=== PATIENT | female | born 1995 ===

== ENCOUNTER 2020-06-14 13:34 | Emergency (ER) | payer MEDICAID, SELFPAY | END 2020-06-14 15:15 | disposition left against medical advice (07) | PROVIDERS: Emergency Provider Emergency Medicine | DX: G44.309 Post-traumatic headache, unspecified, not intractable (principal) ==

== ENCOUNTER 2024-04-29 10:21 | Emergency (ER) | payer OTHER, SELFPAY ==
--- NOTE | ~2024-04-29 | US_ITS ---
EXAMINATION: US OBSTETRICAL ULTRASOUND CLINICAL INFORMATION: with lower abdominal pain. Positive HCG. COMPARISON: None available. LMP: 03/07/2024. Gestational age by maternal dates is 7 weeks 4 days. Estimated date of delivery by maternal dates is 12/12/2024. TECHNIQUE: Transabdominal imaging of pelvis is performed. FINDINGS: There is a single intrauterine gestational sac with visible yolk sac, embryo/fetus, and cardiac activity. There is no significant subchorionic hemorrhage or hematoma. Uterus is anteverted and measures 7.8 x 5.0 x 6.0 cm HR: 115 beats per minute. CRL (crown rump length): 0.77 cm (6 weeks 1 day +/- 4 days). CHAYA (estimated date of delivery): 12/22/2024 +/- 4 days. Clinical gestational age is 12/12/2024 MATERNAL ADNEXA: The right maternal ovary measures 2.0 x 1.4 1.8 cm. The left maternal ovary measures 1.7 x 1.3 x 1.8 cm. There is no significant maternal adnexal mass. No maternal pelvic ascites. US/US OB <= 14 weeks fetus IMPRESSION: 1. Single intrauterine gestation with ultrasound gestational age of 6 weeks 1 day +/- 4 days. 2. Estimated date of delivery is 12/22/2024 +/- 4 days. 3. No maternal adnexal mass or pelvic ascites. Electronically signed by: Billy Rankin MD 04/29/2024 02:54 PM [facility]
[2024-04-29 10:26] VITALS: BP 109/65; PULSE 76; RESP 20; TEMP 36.1; O2SAT 100; BMI 18.8
[2024-04-29 10:49] LABS: MANUAL DIFF FLAG NO
[2024-04-29 10:52] LABS: Basophils Percent Auto 0.3 % (0-2); Eosinophils Absolute Auto 0.1 X10*3/uL (0.0-0.4); Eosinophils Percent Auto 0.6 % (0-4); Hematocrit 37.6 % (37.0-47.0); Hemoglobin 12.6 g/dl (12.0-16.0); Imm Gran Abs Auto 0.02 X10*3/uL (0.00-0.03); Imm Gran Pct Auto 0.2 % (0.0-0.4); Lymphocytes Absolute Auto 2.1 X10*3/uL (1.2-4.9); Lymphocytes Percent Auto 24.1 % (20-40); Mean Corpuscular HGB Conc 33.5 g/dl (31.0-35.0); Mean Corpuscular Hemoglobin 25.4 pg (27.0-33.0); Mean Corpuscular Volume 75.7 fL (80.0-98.0); Mean Platelet Volume 11.8 fL (9.4-12.3); Monocytes Absolute Auto 0.5 X10*3/uL (0.1-1.2); Monocytes Percent Auto 5.7 % (2-11); Neutrophils Absolute Auto 6.1 x10*3/uL (2.0-8.3); Neutrophils Percent Auto 69.1 % (45-73); Platelet Count 239 X10*3/uL (160-400); Red Blood Count 4.97 X10*6/uL (4.20-5.50); Red Cell Distribution Width 15.4 % (11.0-16.0); White Blood Count 8.8 X10*3/uL (4.8-10.8)
[2024-04-29 10:59] LABS: UPreg QC Valid YES; Urine Pregnancy POSITIVE (NEGATIVE)
[2024-04-29 11:05] LABS: Anion Gap 13 (12-20); Blood Urea Nitrogen 10 mg/dL (9-16); Calcium 9.3 mg/dL (8.4-10.2); Carbon Dioxide 23 mmol/L (22-29); Chloride 104 mmol/L (96-108); Estimated Glomerular Filt Rate > 60; Glucose Random 100 mg/dL (60-115); Potassium 4.4 mmol/L (3.3-5.1); Sodium 136 mmol/L (135-145)
[2024-04-29 11:33] LABS: Influenza A PCR NEGATIVE (Negative); Influenza B PCR NEGATIVE (Negative); Resp Syncy Virus RNA Qual PCR NEGATIVE (Negative); SARS COV2 PCR INHOUSE NEGATIVE (Negative)
[2024-04-29 12:30] LABS: Appearance Urine Turbid; Color Urine Dark Yellow; Glucose Urine UA Negative (Negative); Leukocyte Esterase Urine Trace (Negative); Nitrite Urine Negative (Negative); PH 6.5 (5.0-9.0); Specific Gravity - Urine >= 1.030 (1.005-1.025); UMIC TRIGGER UACC YES; Urine Blood Negative (Negative); Urine Ketones >=160 mg/dL (Negative); Urine Protein 30 (1+) mg/dL (Neg-Trace)
--- NOTE | 2024-04-29 12:33 | ED.GENADULT ---
HPI - General Adult General Chief complaint: Nausea/Vomiting/Diarrhea Stated complaint: n/v/d, feels weak Time Seen by Provider: 04/29/24 12:11 Source: patient Mode of arrival: ambulatory Limitations: no limitations History of Present Illness ED Provider: Bud Manzanares [facility] narrative: 28-year-old female healthy presents to ED for a week of nausea, vomiting, decreased p.o. appetite, irregular menstruation, and not presently mild abdominal cramping. Patient denies any fever or chills. Patient denies any genitourinary symptoms. Patient denies any vaginal bleed. Patient states last menstruation was in February. Related Data Previous Rx's ?Medication ?Instructions ?Recorded pyridoxine (vitamin B6) 25 mg 25 mg PO TID nausea & vomitting 5 04/29/24 tablet days #15 tabs Allergies Allergy/AdvReac Type Severity Reaction Status Date / Time No Known Allergies Allergy Verified 04/29/24 10:29 Review of Systems Review of Systems: Vomiting, nausea, decreased p.o., appetite, on regular menstrual cycle, Yes all other systems are reviewed and are negative Physical Exam ED Vital Signs: Vital Signs - 24 hr 04/29/24 10:26 04/29/24 16:16 Temperature 96.9 F 96.9 F Pulse Rate 76 76 Respiratory Rate 20 20 Blood Pressure 109/65 109/65 Pulse Oximetry 100 100 Oxygen Delivery Method Room Air Room Air BMI result Body Mass Index 18.8 Const General: cooperative, healthy appearing, comfortable, no acute distress, well developed, alert and awake Orientation/consciousness: patient oriented x3 HENMT Head: Yes normal to inspection, Yes No palpable skull fracture present, Yes normocephalic and Yes atraumatic Ears: hearing grossly normal bilaterally, external ears normal, TM's normal bilaterally, TM normal on the right, TM normal on the left, EAC's normal, mastoids normal and no periauricular adenopathy Throat: Yes posterior oropharynx normal, Yes tonsils normal and Yes uvula midline Eyes General: appearance normal, both eyes and all related structures Neck Neck: Yes normal visual inspection, Yes full ROM, Yes no lymphadenopathy, Yes no meningeal signs, Yes trachea midline, Yes supple and No anterior neck swelling Chest Chest palpation & inspection: normal inspection of the chest and normal palpation of entire chest wall Resp Effort & Inspection: normal respiratory effort and able to speak in complete sentences Auscultation: clear to auscultation bilaterally Cardio Jugular venous distension: no JVD Heart sounds: S1 normal heart sound present and S2 normal heart sound present GI Inspection: Yes normal to inspection Palpation (GI): Soft to palpation, not firm, Tenderness to palpation present (GI) in the LLQ and suprapubicly (cramping), no guarding and not rigid Other: Pelvic exam deferred by patient General: Yes no CVA tenderness Back/Spine/Pelvis Back: no CVA tenderness and No back tenderness Skin General skin exam: no rashes or lesions noted, elasticity normal and turgor normal Neuro General: patient oriented x3, gait normal, tone normal, moves all extremities, Normal light touch and pain sensation, no meningeal signs, no focal motor deficits, CN's II-XI intact bilaterally and normal sensation to monofilament Extrem General: Yes normal to inspection, Yes full ROM and Yes capillary refill normal Psych Appearance: grossly normal, well kempt and not disheveled Medications Administered Discontinued Medications Generic Name Dose Route Start Last Admin Trade Name Torito PRN Reason Stop Dose Admin Acetaminophen 975 mg 04/29/24 12:26 04/29/24 13:25 Acetaminophen 325 Mg Tablet PO 04/29/24 12:27 975 mg ONCE ONE Administration Lactated Ringer's 1,000 mls @ 999 mls/hr 04/29/24 12:33 04/29/24 15:57 Lr IV 04/29/24 13:33 Infused .Q1H1M STA Infusion Lactated Ringer's 1,000 mls @ 999 mls/hr 04/29/24 12:45 04/29/24 15:57 Lr IV 04/29/24 13:45 Infused .Q1H1M THAO Infusion Ondansetron HCl 4 mg 04/29/24 12:31 04/29/24 12:52 Ondansetron Odt 4 Mg Tab.Rapdis TRANSLINGU 04/29/24 12:32 4 mg ONCE ONE Administration Pyridoxine HCl 50 mg 04/29/24 12:26 04/29/24 13:25 Pyridoxine Hcl (Vitamin B6) 50 Mg Tablet PO 04/29/24 12:27 50 mg ONCE ONE Administration Medical Decision Making Medical Decision Making MDM Narrative: 28-year-old female presents to ED for decreased appetite, missed menstruation, fatigue found to be on testing of urine during ED visit. Patient will be treated as hyperemesis . Ketones over 160. 2 L of LR ordered. Vitamin B6 Zofran ordered. Patient will be sent for ultrasound. 4:00pm: Patient's ultrasound shows IUP with heart. Patient explained worrisome signs and informed to follow-up with OBGYN. Patient explained worrisome signs informed to return to the ED immediately. Patient states she feels better. Presently not suspect any appendicitis, ectopic , missed , pyelonephritis, blood kidney stones, or any other life-threatening etiology. Differential Diagnosis Differential Diagnoses: The differential diagnosis associated with the presentation includes (Hyperemesis, , UTI, ectopic pregnacy) Admission/Observation Consideration of admission/observation: Escalation of care including admission/observation considered Lab Data MDM Lab Attestation statement: I reviewed the patient's lab results. 04/29/24 10:39 04/29/24 10:39 Labs: Lab Results 04/29/24 04/29/24 Range/Units 10:39 13:08 WBC 8.8 (4.8-10.8) X10*3/uL RBC 4.97 (4.20-5.50) X10*6/uL Hgb 12.6 (12.0-16.0) g/dl Hct 37.6 (37.0-47.0) % MCV 75.7 L (80.0-98.0) fL MCH 25.4 L (27.0-33.0) pg MCHC 33.5 (31.0-35.0) g/dl RDW 15.4 (11.0-16.0) % Plt Count 239 (160-400) X10*3/uL MPV 11.8 (9.4-12.3) fL Immature Gran % (Auto) 0.2 (0.0-0.4) % Neut % (Auto) 69.1 (45-73) % Lymph % (Auto) 24.1 (20-40) % [place] % (Auto) 5.7 (2-11) % Eos % (Auto) 0.6 (0-4) % Baso % (Auto) 0.3 (0-2) % Lymph # (Auto) 2.1 (1.2-4.9) X10*3/uL [place] # (Auto) 0.5 (0.1-1.2) X10*3/uL Eos # (Auto) 0.1 (0.0-0.4) X10*3/uL Baso # (Auto) 0.0 (0.0-0.2) X10*3/uL Abs Immat Gran (auto) 0.02 (0.00-0.03) X10*3/uL Absolute Neuts (auto) 6.1 (2.0-8.3) x10*3/uL Absolute Nucleated RBC 0.000 (0.0-0.012) X10*3/uL Nucleated RBC % (auto) 0.0 (0.0-0.2) /100WBC PT 14.3 H (10.9-12.4) SEC INR 1.2 H (0.9-1.1) APTT 32.4 (26.0-36.8) SEC Sodium 136 (135-145) mmol/L Potassium 4.4 (3.3-5.1) mmol/L Chloride 104 (96-108) mmol/L Carbon Dioxide 23 (22-29) mmol/L Anion Gap 13 (12-20) BUN 10 (9-16) mg/dL Creatinine 0.71 (0.5-1.4) mg/dL Estim Creat Clear Calc 100.0 Estimated GFR > 60 Random Glucose 100 (60-115) mg/dL Calcium 9.3 (8.4-10.2) mg/dL Beta HCG, Quant 99650 mIU/mL Urine Color Dark Yellow Urine Appearance Turbid Urine pH 6.5 (5.0-9.0) Ur Specific [place] >= 1.030 H (1.005-1.025) Urine Protein 30 (1+) H (Neg-Trace) mg/dL Urine Glucose (UA) Negative (Negative) mg/dL Urine Ketones >=160 (Negative) mg/dL Urine Blood Negative (Negative) Urine Nitrite Negative (Negative) Ur Leukocyte Esterase Trace H (Negative) Urine RBC 0-2 (0-2) /HPF Urine WBC 0-5 (0-5) /HPF Ur Squamous Epith Cells >20 (0-2) /HPF Urine Bacteria 1+ (None Seen) Hyaline Casts 0-2 (0-2) /LPF Urine Test POSITIVE H (NEGATIVE) Influenza Type A (PCR) NEGATIVE (Negative) Influenza Type B (PCR) NEGATIVE (Negative) RSV RNA Qual (PCR) NEGATIVE (Negative) SARS-CoV-2 RNA (RT-PCR) NEGATIVE (Negative) Blood Type O Positive Independent Interpretation I performed an independent interpretation of an: Ultrasound Radiology Impression Discussion of test interpretation with radiology: I have reviewed the radiologist's reading. Independent Historian Clinical information obtained from an independent historian. History obtained from or confirmed by: Other (Patient) External Record Review External record reviewed: Other (prior visits) Discharge Plan Discharge Clinical Impression: , Hyperemesis gravidarum, Abdominal pain during Patient Disposition: Home, Self-Care Instructions: (ED), Hyperemesis Gravidarum (ED), Abdominal Pain in (ED) Additional Instructions: Recommend follow-up with primary care provider. Return to the ED immediately for any vaginal bleeding, vaginal discharge, abdominal pain, back pain, weakness, vomiting, passing out, dysuria, hematuria, or any other concerning symptoms. You will need follow-up with the OBGYN. FINDINGS: There is a single intrauterine gestational sac with visible yolk sac, embryo/fetus, and cardiac activity. There is no significant subchorionic hemorrhage or hematoma. Uterus is anteverted and measures 7.8 x 5.0 x 6.0 cm HR: 115 beats per minute. CRL (crown rump length): 0.77 cm (6 weeks 1 day +/- 4 days). CHAYA (estimated date of delivery): 12/22/2024 +/- 4 days. Clinical gestational age is 12/12/2024 MATERNAL ADNEXA: The right maternal ovary measures 2.0 x 1.4 1.8 cm. The left maternal ovary measures 1.7 x 1.3 x 1.8 cm. There is no significant maternal adnexal mass. No maternal pelvic ascites. US/US OB <= 14 weeks fetus IMPRESSION: 1. Single intrauterine gestation with ultrasound gestational age of 6 weeks 1 day +/- 4 days. 2. Estimated date of delivery is 12/22/2024 +/- 4 days. 3. No maternal adnexal mass or pelvic ascites. Electronically signed by: Billy Rankin MD 04/29/2024 02:54 PM [facility] [place] Dictated By: Billy Rankin MD Signed By: <Electronically signed by Billy Rankin MD in OV> 04/29/24 1454 Prescriptions: New pyridoxine (vitamin B6) 25 mg tablet 25 mg PO TID 5 Days Qty: 15 0RF Referrals: Óscar Conley MD [Physician] - (Hyperemesis gravidarum, known 1st time in the ED) Stand Alone Forms: Work/School Release Interventions: ED Discharge Assessment Last Done: 04/29/24 16:16 Discharge Date/Time: 04/29/24 16:16 Print Language: Thai
[2024-04-29 12:46] LABS: Bacteria Urine 1+ (None Seen); Hyaline Casts Urine 0-2 /LPF (0-2); RBC Urine 0-2 /HPF (0-2); Squamous Epithelial Cell Urine >20 /HPF (0-2); WBC Urine 0-5 /HPF (0-5)
[2024-04-29] MEDS: Ondansetron ODT 4 MG TAB.RAPDIS TRANSLINGU (12:52)
[2024-04-29 12:57] LABS: HCG Quantitative 71595 mIU/mL
[2024-04-29] MEDS: Lactated Ringers 1,000 ML 999 ML IV ×2 (12:58→13:10)
--- NOTE | 2024-04-29 13:04 | PC.NURSE ---
PT medicated per Mar with Zofran, waiting for zofran to take effect before taking rest of PO meds.
[2024-04-29 13:20] LABS: INTERNATIONAL NORM RATIO 1.2 (0.9-1.1); Prothrombin Time 14.3 SEC (10.9-12.4)
[2024-04-29 13:22] LABS: Partial Thromboplastin Time 32.4 SEC (26.0-36.8)
[2024-04-29] MEDS: Acetaminophen 325 MG TABLET 975 MG PO (13:25)
[2024-04-29] MEDS: Pyridoxine HCl (Vitamin B6) 50 MG TABLET PO (13:25)
--- NOTE | 2024-04-29 14:30 | PC.NURSE ---
LR still running
[2024-04-29 16:16] VITALS: BP 109/65; PULSE 76; RESP 20; TEMP 36.1; O2SAT 100
== END 2024-04-29 16:16 | disposition home or self-care (01) ==
PROVIDERS: Physician Assistant; Emergency Provider Emergency Medicine
DX: O21.0 Mild hyperemesis gravidarum (principal); Z3A.01 Less than 8 weeks gestation of pregnancy; R10.2 Pelvic and perineal pain; Z79.899 Other long term (current) drug therapy; Z03.818 Encounter for observation for suspected exposure to other biological agents ruled out
CPT/HCPCS: 0241U; 36415; 76801; 80048; 81001; 81025; 84702; 85025; 85610; 85730; 86900; 86901; 96360; 96361; 99284; J7120

== ENCOUNTER → 2024-04-29 12:13 | Outpatient (BNV) | payer OTHER, SELFPAY | PROVIDERS: Emergency Provider Emergency Medicine; Visit Provider Radiology Diagnostic Radiology | DX: O99.711 Diseases of the skin and subcutaneous tissue complicating pregnancy, first trimester (principal) | CPT/HCPCS: 76801 ==